=== PATIENT | female | born 1965 | race Caucasian/White ===

== ENCOUNTER 2021-07-26 11:24 | Outpatient (REF) | payer BC, SELFPAY ==
[2021-07-26 12:19] LABS: Influenza A PCR NEGATIVE (Negative); Influenza B PCR NEGATIVE (Negative); Resp Syncy Virus RNA Qual PCR NEGATIVE (Negative); SARS COV2 PCR INHOUSE NEGATIVE (Negative)
== END 2021-07-26 11:25 | disposition home or self-care (01) ==
LOC: HO.LNP 11:24
PROVIDERS: Visit Provider Physician Assistant
DX: R09.81 Nasal congestion (principal)
CPT/HCPCS: 0241U

== ENCOUNTER 2023-11-24 15:10 | Outpatient (AMB) | payer BC, SELFPAY ==
--- NOTE | 2023-11-24 15:19 | MHC.PC.OV ---
Intake Visit Reasons: check up Allergies No Known Allergies Allergy (Verified 07/26/21 08:28) PFSH Social History Patient Tobacco Use Status: Never used Tobacco Physical exam (Primary Care) Tobacco/Smoking Status: Tobacco use Status Patient Tobacco Use Status Never used Tobacco 07/26/21 08:33 Coding
--- NOTE | 2023-11-24 15:21 | MHC.PC.OV ---
Vital Signs 11/24/23 15:34 Height 5 ft 4 in Weight 160 lb BMI 27.5 BP 126/74 Blood Pressure Location Lt brachial Position Sitting Respiration 14 Pulse 92 Pulse Source Pulse Oximeter Temp 98.9 F Temp Source Oral Pulse Oximetry (%) 98 Oxygen Delivery Method Room Air Intake Visit Reasons: check up Intake Note: New patient visit. Left ear pain. Went to urgent care two weeks ago and then again a week ago with no relief. Dye Colorist Formulator Required: No Allergies No Known Allergies Allergy (Verified 11/24/23 15:26) Medication List - Last Reconciled 11/24/23 by Katharina Kendrick PA-C amlodipine 2.5 mg PO DAILY carvedilol 25 mg PO BID cyanocobalamin (vitamin B-12) mcg IM hydrochlorothiazide 12.5 mg PO QAM losartan 100 mg PO DAILY simvastatin 20 mg PO BEDTIME Tobacco use date assessed: 11/24/23 Dental Screening Dental Screen Date: 11/24/23 Did you have a dental visit in the last 12 months?: No Did you have a dental problem in the last 6 months where you did not have access to dental care?: No Was dental information given to patient?: Patient has dentist HPI check up HPI Details Patient is a 58-year-old female who presents today to [facility] and with complaints of ongoing left ear pain. She is transferring care from [facility] and was my patient there with a significant past medical history of hypertension, hyperlipidemia, Crohn's disease, B12 deficiency, chronic sinusitis. Records are not yet available. She states that her sinuses and left ear is painful x 3 weeks. She states she went to urgent care 3 x in the last 3 weeks. She states that initially she was told it was viral. She states then she was told it was an ear infection. She was given augmentin, flonase and sudafed. She states that she went back yesterday and was given cefdinir and took one dose last night. She states that her hearing on the left feels muffled. She states that she does not know why she took this medication because she is used in the past and it is ineffective. She reports intermittent fevers with this. She just does not feel like her ear is getting better. It feels like it is throbbing and very full. Sinuses are cut off tender glass. No cough or wheezing. CV: Blood pressure today in the office is 126/74. She is currently on amlodipine 2.5 mg, carvedilol 25 mg twice a day, losartan 100 mg and hctz 12.5. She is on simvastatin 20 mg. Last had her cholesterol checked. Colonoscopy: Overdue, prefers Cologuard. Has Cologuard at home and needs to still send this in. Mammogram: Overdue, 2020 was last one, she is getting it done this summer. Derm: following with [facility] for scc and bcc on chest. [facility] Medical History (Updated 11/24/23 @ 15:42 by Katharina Kendrick PA-C) Chronic sinusitis Dyslipidemia HTN (hypertension), benign Family History (Updated 11/24/23 @ 15:42 by Eulalia Livingston CMA) Father Lung cancer HTN (hypertension) Hypercholesteremia Mother HTN (hypertension) Social History (Updated 11/24/23 @ 15:34 by Eulalia Livingston CMA) Housing: House Patient Tobacco Use Status: Never used Tobacco e-Cigarette/Vaping Use: Never Used Second Hand Smoke Exposure: Yes service: No Current occupational status: employed Current occupation: [employer] Current occupational exposures/hazards: No Cognitive needs: No Hearing needs: No Vision needs: Yes Questionnaire PHQ-9 Over the last 2 weeks, how often have you been bothered by any of the following problems? 1. Little interest or pleasure in doing things: not at all 2. Feeling down, depressed, or hopeless: not at all 3. Trouble falling or staying asleep, or sleeping too much: not at all 4. Feeling tired or having little energy: not at all 5. Poor appetite or overeating: not at all 6. Feeling bad about yourself - or that you are a failure or have let yourself or your family down: not at all 7. Trouble concentrating on things, such as reading the newspaper or watching television: not at all 8. Moving or speaking so slowly that other people could have noticed. Or the opposite - being so fidgety or restless that you have been moving around a lot more than usual: not at all 9. Thoughts that you would be better off or of hurting yourself in some way: not at all Total score: 0 Depression Screening Interpretation: Negative Depression Screening Done: Yes 52652 - PHQ-9 Billing: Yes Source: Developed by Drs. Dawit Sargent, Hilary Bobo, Contreras Castillo and colleagues, with an educational elvia from [employer]. Thrive Questionnaire Date Thrive assessed: 11/24/23 I am a: Patient What is your living situation today?: I have a steady place to live Within the past 12 months, did the food you bought not last and you didn't have the money to get more?: Never true Within the past 12 months, did you worry whether your food would run out before you got money to buy more?: Never true Do you have trouble paying for medicines?: No Do you have trouble getting transportation to medical appointments?: Yes Do you have trouble paying your heating and electricity bill?: No Do you have trouble taking care of your child, family member or friend?: No Do you have trouble with day-to-day activities such as bathing, preparing meals, shopping, managing finances, etc.?: No Are you currently unemployed and looking for a job?: No Are you interested in more education?: No Please select the resources that you would like help with: Utilities Currently or been in a relationship where the following occur: no concerns reported THRIVE Score: 1 AUDIT C Alcohol Use Questionnaire (AUDIT-C) 1. How often do you have a drink containing alcohol?: Monthly or less 2. How many drinks containing alcohol do you have on a typical day when you are drinking?: 1 or 2 3. How often do you have six or more drinks on one occasion?: Never Total Score: 1 KELLIE-7 AMB Questionnaire KELLIE-7 Date KELLIE - 7 assessed: 11/24/23 Feeling nervous, anxious, or on edge: 0 = Not at all Not being able to stop or control worryin = Not at all Worrying too much about different things: 0 = Not at all Trouble relaxin = Not at all Being so restless that it is hard to sit still: 0 = Not at all Becoming easily annoyed or irritable: 0 = Not at all Feeling afraid as if something awful might happen: 0 = Not at all Total KELLIE-7 score (0-4 normal; 5-9 mild; 10-14 moderate; 15-21 severe): 0 Source: Developed by Drs. Dawit Sargent, Contreras Woodsoenke and colleagues, with an educational elvia from [employer]. KELLIE-7 Assessment Billing KELLIE-7 Assessment Tool: KELLIE-7 Assessment 65408 Physical exam (Primary Care) Vital Signs: Last Vital Signs Temp 98.9 F 11/24/23 15:34 Pulse 92 11/24/23 15:34 Resp 14 11/24/23 15:34 BP 126/74 11/24/23 15:34 Pulse Ox 98 11/24/23 15:34 Oxygen Delivery Method Room Air 11/24/23 15:34 BMI result Body Mass Index 27.5 Tobacco/Smoking Status: Tobacco use Status Tobacco use date assessed 11/24/23 11/24/23 15:40 Patient Tobacco Use Status Never used Tobacco 11/24/23 15:40 e-Cigarette/Vaping Use Never Used 11/24/23 15:40 Depression Screening Interpretation: Negative Currently or been in a relationship where the following occur: no concerns reported Const Orientation/consciousness: patient oriented x3 HENMT Other: TM on left is dome-shaped with a small air-fluid level and erythematous. Negative tug test. TM on right is noted to have a small air-fluid level. No erythema. Negative talk to us. Maxillary sinus tenderness present. Nasal mucosa is erythematous and edematous with purulent drainage noted. Ears: hearing grossly normal bilaterally Neck Thyroid: Thyroid normal Lymphatic: no lymphadenopathy noted Resp Auscultation: clear to auscultation bilaterally Cardio Rate: regular rate Rhythm: regular rhythm Heart sounds: S1 normal heart sound present and S2 normal heart sound present GI Inspection: Yes normal to inspection Palpation (GI): Soft to palpation and Other GI palpation findings present (nontender, no cva tenderness) Auscultation: normoactive bowel sounds Rectal Exam - Female: deferred Skin General skin exam: no rashes or lesions noted Neuro General: patient oriented x3, gait normal and no focal motor deficits Assessment and Plan Assessment & Plan (1) Dyslipidemia: Code(s): E78.5 - Hyperlipidemia, unspecified Plan: Has not yet had cholesterol rechecked since increasing her simvastatin last year. Lipids and LFTs ordered today. (2) HTN (hypertension), benign: Code(s): I10 - Essential (primary) hypertension Plan: WNL. Continue current regimen. Does not currently need a refill. (3) Left otitis media with effusion: Code(s): H65.92 - Unspecified nonsuppurative otitis media, left ear Plan: I will start patient on doxycycline. Risks and benefits and adverse effects such as a photosensitivity rash and GI upset was discussed. Advised to take a probiotic. We will start her on a prednisone taper. She has tolerated this in the past. Will let me know if anything worsens or changes. Plan Health maintenance reviewed. Advised patient to complete her Cologuard. I have encouraged her to complete her mammogram. I have offered to reorder this for her but she assures me that she has an appointment pending this summer with [facility] and this was ordered by her conventional machinist. She will transfer her records. Labs ordered to complete prior to her next appointment in 1 month. Orders: Orders Complete Blood Count Auto Diff Today E78.5 - Hyperlipidemia, unspecified, I10 - Essential (primary) hypertension, J32.9 - Chronic sinusitis, unspecified, Z00.00 - Encounter for general adult medical examination without abnormal findings TSH reflex Free T4 Today E78.5 - Hyperlipidemia, unspecified, I10 - Essential (primary) hypertension, J32.9 - Chronic sinusitis, unspecified Comprehensive [place]. Panel Fast Today E78.5 - Hyperlipidemia, unspecified, I10 - Essential (primary) hypertension, J32.9 - Chronic sinusitis, unspecified Lipid Panel Today E78.5 - Hyperlipidemia, unspecified, I10 - Essential (primary) hypertension, J32.9 - Chronic sinusitis, unspecified Medications: New doxycycline hyclate 100 mg PO BID 10 days 20 tabs 0RF prednisone orally daily; take 3 tab po x 3 days, 2 tab po x 3 days, then 1 tab po x 3 days 9 days 18 tabs 0RF Coding Level of Care Code Est Pt Level 4 (25080) Diagnoses Dyslipidemia E78.5 HTN (hypertension), benign I10 Left otitis media with effusion H65.92 Additional Codes KELLIE-7 Assessment Billing - KELLIE-7 Assessment Tool: KELLIE-7 Assessment 06388 ([id number])
[2023-11-24 15:34] VITALS: BP 126/74; PULSE 92; RESP 14; TEMP 37.2; O2SAT 98; BMI 27.5
== END 2023-11-24 16:33 | disposition home or self-care (01) ==
PROVIDERS: Visit Provider Physician Assistant
DX: E78.5 Hyperlipidemia, unspecified (principal); I10 Essential (primary) hypertension; H65.92 Unspecified nonsuppurative otitis media, left ear
CPT/HCPCS: 99214

== ENCOUNTER 2024-03-31 13:07 | Outpatient (AMB) | payer BC, SELFPAY ==
--- NOTE | 2024-03-31 13:15 | A.OFFPC_ITS ---
Vital Signs 03/31/24 13:17 Height 5 ft 4 in Weight 166 lb 4 oz BMI 28.5 BP 126/84 Blood Pressure Location Lt brachial Position Sitting Respiration 16 Pulse 93 Pulse Source Pulse Oximeter Pulse Oximetry (%) 95 Oxygen Delivery Method Room Air Intake Visit Reasons: 4 month follow up Intake Note: Four month follow up. Post menopausal: Yes Allergies No Known Allergies Allergy (Verified 03/31/24 13:16) Medication List - Last Reconciled 03/31/24 by Katharina Kendrick PA-C amlodipine 2.5 mg PO DAILY carvedilol 25 mg PO BID cyanocobalamin (vitamin B-12) mcg IM hydrochlorothiazide 12.5 mg PO QAM losartan 100 mg PO DAILY simvastatin 20 mg PO BEDTIME Tobacco use date assessed: 11/24/23 Dental Screening Dental Screen Date: 11/24/23 HPI 4 month follow up HPI Details Patient is a 59-year-old female who presents today for a follow up. Forgot to do labs. She has a significant past medical history of hypertension, hyperlipidemia, Crohn's disease, B12 deficiency, chronic sinusitis. CV: Blood pressure today in the office is 126/84. She is currently on amlodipine 2.5 mg, carvedilol 25 mg twice a day, losartan 100 mg and hctz 12.5. She is on simvastatin 20 mg. Last had her cholesterol checked. Psych: Mother in January. They are dealing with a lot of legal issues as brother is executor of will. Daughter had a baby in December. Colonoscopy: Saw Dr. Castellano yesterday. Brittney, prefers Cologuard. He was supposed to order this for her but didn't. She states the ACADEMIC ADVISOR she saw also asked that her pcp order the crp. Crohn's is diet controlled. Mammogram: Overdue2019 was last one, she is getting it done this Friday. Derm: following with [facility] for scc and bcc on chest. [facility] Medical History (Updated 03/31/24 @ 13:54 by Katharina Kendrick PA-C) Chronic sinusitis Dyslipidemia HTN (hypertension), benign Family History (Updated 11/24/23 @ 15:42 by Eulalia Livingston CMA) Father Lung cancer HTN (hypertension) Hypercholesteremia Mother HTN (hypertension) Social History (Updated 11/24/23 @ 15:34 by JAG Watters Housing: House Patient Tobacco Use Status: Never used Tobacco e-Cigarette/Vaping Use: Never Used Second Hand Smoke Exposure: Yes service: No Current occupational status: employed Current occupation: [employer] Current occupational exposures/hazards: No Cognitive needs: No Hearing needs: No Vision needs: Yes Questionnaire Thrive Questionnaire Date Thrive assessed: 11/24/23 KELLIE-7 AMB Questionnaire KELLIE-7 Date KELLIE - 7 assessed: 11/24/23 Source: Developed by Drs. Dawit Sargent, Hilary Bobo, Contreras Castillo and colleagues, with an educational elvia from [employer]. Physical exam (Primary Care) Tobacco/Smoking Status: Tobacco use Status Tobacco use date assessed 11/24/23 11/24/23 15:40 Patient Tobacco Use Status Never used Tobacco 11/24/23 15:40 e-Cigarette/Vaping Use Never Used 11/24/23 15:40 Thrive Assessment: Date of Thrive Assessment Date Thrive assessed 11/24/23 11/24/23 15:46 Const Orientation/consciousness: patient oriented x3 HENMT Ears: hearing grossly normal bilaterally Neck Thyroid: Thyroid normal Lymphatic: no lymphadenopathy noted Resp Auscultation: clear to auscultation bilaterally Cardio Rate: regular rate Rhythm: regular rhythm Heart sounds: S1 normal heart sound present and S2 normal heart sound present GI Inspection: Yes normal to inspection Palpation (GI): Soft to palpation and Other GI palpation findings present (nontender, no cva tenderness) Auscultation: normoactive bowel sounds Rectal Exam - Female: deferred Skin General skin exam: no rashes or lesions noted Neuro General: patient oriented x3, gait normal and no focal motor deficits Assessment and Plan Assessment & Plan (1) HTN (hypertension), benign: Code(s): I10 - Essential (primary) hypertension Plan: Continue current regimen (2) Dyslipidemia: Code(s): E78.5 - Hyperlipidemia, unspecified Plan: Labs ordered. Advised her to get this done. (3) Crohn disease: Code(s): K50.90 - Crohn's disease, unspecified, without complications Qualifiers: Gastrointestinal tract location: unspecified location Digestive disease complication type: without complication Qualified Code(s): K50.90 - Crohn's disease, unspecified, without complications Plan: Stable and controlled. (4) Chronic sinusitis: Code(s): J32.9 - Chronic sinusitis, unspecified Plan: Referral to Allergy and immunology. Gets frequent infections. Advised to try an antihistamine but discontinued this a couple of weeks prior to seeing Allergy and immunology. Plan Bone density ordered. Cologuard ordered. Labs as requested by GI ordered. Advised six-month follow up or sooner if needed. Patient understands and agrees with the plan. Orders: Orders XR DEXA axial skeleton Today Z78.0 - Asymptomatic menopausal state Vitamin D 1,25 dihydroxy Today E78.5 - Hyperlipidemia, unspecified, I10 - Essential (primary) hypertension, K50.90 - Crohn's disease, unspecified, without complications CRP High Sensitivity Today E78.5 - Hyperlipidemia, unspecified, I10 - Essential (primary) hypertension, K50.90 - Crohn's disease, unspecified, without complications Referrals Cologuard Test Z12.11 - Encounter for screening for malignant neoplasm of colon, Z12.12 - Encounter for screening for malignant neoplasm of rectum Allergy & Immunology Referral J32.9 - Chronic sinusitis, unspecified Coding Level of Care Code Est Pt Level 4 (98857) Complex EM visit Add On G2211 Diagnoses HTN (hypertension), benign I10 Dyslipidemia E78.5 Crohn's disease without complication, unspecified gastrointestinal tract location K50.90 Gastrointestinal tract location: unspecified location Digestive disease complication type: without complication Chronic sinusitis J32.9
[2024-03-31 13:17] VITALS: BP 126/84; PULSE 93; RESP 16; O2SAT 95; BMI 28.5
== END 2024-03-31 13:49 | disposition home or self-care (01) ==
PROVIDERS: PCP Physician Assistant; Visit Provider Physician Assistant
DX: I10 Essential (primary) hypertension (principal); E78.5 Hyperlipidemia, unspecified; K50.90 Crohn's disease, unspecified, without complications; J32.9 Chronic sinusitis, unspecified
CPT/HCPCS: 99214

== ENCOUNTER 2024-04-02 08:53 | Outpatient (REF) | payer BC, SELFPAY ==
[2024-04-02 10:05] LABS: MANUAL DIFF FLAG NO
[2024-04-02 10:20] LABS: Basophils Absolute Auto 0.1 X10*3/uL (0.0-0.2); Basophils Percent Auto 0.9 % (0-2); Eosinophils Absolute Auto 0.2 X10*3/uL (0.0-0.4); Eosinophils Percent Auto 3.5 % (0-4); Hematocrit 40.4 % (37.0-47.0); Hemoglobin 13.1 g/dl (12.0-16.0); Imm Gran Abs Auto 0.03 X10*3/uL (0.00-0.03); Imm Gran Pct Auto 0.4 % (0.0-0.4); Lymphocytes Absolute Auto 0.8 X10*3/uL (1.2-4.9); Lymphocytes Percent Auto 11.5 % (20-40); Mean Corpuscular HGB Conc 32.4 g/dl (31.0-35.0); Mean Corpuscular Volume 95.5 fL (80.0-98.0); Mean Platelet Volume 9.2 fL (9.4-12.3); Monocytes Absolute Auto 0.4 X10*3/uL (0.1-1.2); Neutrophils Absolute Auto 5.3 x10*3/uL (2.0-8.3); Neutrophils Percent Auto 77.7 % (45-73); Platelet Count 303 X10*3/uL (160-400); Red Blood Count 4.23 X10*6/uL (4.20-5.50); Red Cell Distribution Width 12.3 % (11.0-16.0); White Blood Count 6.9 X10*3/uL (4.8-10.8)
[2024-04-02 10:48] LABS: Alanine Aminotransferase 18 U/L (0-31); Albumin Level 4.2 g/dL (3.5-5.0); Alkaline Phosphatase 56 U/L (39-117); Anion Gap 11 (12-20); Aspartate Amino Transferase 21 U/L (5-31); Bilirubin Total 0.5 mg/dL (0.0-1.0); Blood Urea Nitrogen 13 mg/dL (9-16); Calcium 10.1 mg/dL (8.4-10.2); Carbon Dioxide 28 mmol/L (22-29); Chloride 108 mmol/L (96-108); Cholesterol 152 mg/dL (<200); Estimated Glomerular Filt Rate 59; Glucose Fasting 94 mg/dL (60-99); HDL Cholesterol 43 mg/dL (>40); LDL Cholesterol Calculated 86 mg/dL (<100); Potassium 3.5 mmol/L (3.3-5.1); Sodium 143 mmol/L (135-145); Total Protein 7.1 g/dL (6.5-8.0); Triglycerides 119 mg/dL (<150)
[2024-04-02 11:06] LABS: TSH reflex Free T4 1.51 uIU/mL (0.32-4.0)
[2024-04-05 08:43] LABS: CRP High Sensitivity 0.7 mg/L
[2024-04-08 02:44] LABS: VITAMIN D (1,25 OH) D3 32 pg/mL; Vit D (1,25-Dihydroxy) Total 32 pg/mL (18-72); Vitamin D (1,25 OH) D2 <8 pg/mL
== END 2024-04-02 08:54 | disposition home or self-care (01) ==
LOC: HO.HMGCLDS 08:53
PROVIDERS: PCP Physician Assistant; Visit Provider Physician Assistant
DX: Z00.00 Encounter for general adult medical examination without abnormal findings (principal); I10 Essential (primary) hypertension; J32.9 Chronic sinusitis, unspecified; E78.5 Hyperlipidemia, unspecified; K50.90 Crohn's disease, unspecified, without complications
CPT/HCPCS: 36415; 80053; 80061; 82652; 84443; 85025; 86141

== ENCOUNTER 2024-10-06 13:48 | Outpatient (AMB) | payer BC, SELFPAY ==
--- NOTE | 2024-10-06 15:43 | MHC.PC.OV ---
Intake Visit Reasons: renewal bp medication Allergies No Known Allergies Allergy (Verified 03/31/24 13:16) Medication List - Last Reconciled 10/06/24 by Katharina Kendrick PA-C amlodipine 2.5 mg PO DAILY carvedilol 25 mg PO BID cyanocobalamin (vitamin B-12) mcg IM hydrochlorothiazide 12.5 mg PO DAILY losartan 100 mg PO DAILY simvastatin 20 mg PO BEDTIME Tobacco use date assessed: 11/24/23 Dental Screening Dental Screen Date: 11/24/23 HPI renewal bp medication HPI Details Patient is a 59-year-old female who presents today for a follow up. Forgot to do labs. She has a significant past medical history of hypertension, hyperlipidemia, Crohn's disease, B12 deficiency, chronic sinusitis. CV: Blood pressure today in the office is 126/84. She is currently on amlodipine 2.5 mg, carvedilol 25 mg twice a day, losartan 100 mg and hctz 12.5. She is on simvastatin 20 mg. Last had her cholesterol checked. Psych: Mother in January. They are dealing with a lot of legal issues as brother is executor of will. Daughter had a baby in December. Colonoscopy: Saw Dr. Castellano yesterday. Brittney, prefers Cologuard. He was supposed to order this for her but didn't. She states the RETAIL CUSTOMER SERVICE REPRESENTATIVE she saw also asked that her pcp order the crp. Crohn's is diet controlled. Mammogram: Brittney2019 was last one, she is getting it done this Friday. Derm: following with [facility] for scc and bcc on chest. [facility] Medical History (Updated 10/06/24 @ 16:11 by Katharina Kendrick PA-C) Chronic sinusitis Dyslipidemia HTN (hypertension), benign Family History (Updated 11/24/23 @ 15:42 by Eulalia Livingston CMA) Father Lung cancer HTN (hypertension) Hypercholesteremia Mother HTN (hypertension) Social History (Updated 11/24/23 @ 15:34 by Eulalia Livingston CMA) Housing: House Patient Tobacco Use Status: Never used Tobacco e-Cigarette/Vaping Use: Never Used Second Hand Smoke Exposure: Yes service: No Current occupational status: employed Current occupation: [employer] Current occupational exposures/hazards: No Cognitive needs: No Hearing needs: No Vision needs: Yes Questionnaire Thrive Questionnaire Date Thrive assessed: 11/24/23 AUDIT C Alcohol Use Questionnaire (AUDIT-C) 3. How often do you have six or more drinks on one occasion?: Less than monthly Total Score: 1 KELLIE-7 AMB Questionnaire KELLIE-7 Date KELLIE - 7 assessed: 11/24/23 Source: Developed by Drs. Dawit Sargent, Hilary Bobo, Contreras Castillo and colleagues, with an educational elvia from [employer]. Physical exam (Primary Care) Tobacco/Smoking Status: Tobacco use Status Tobacco use date assessed 11/24/23 03/31/24 13:18 Patient Tobacco Use Status Never used Tobacco 03/31/24 13:18 e-Cigarette/Vaping Use Never Used 03/31/24 13:18 Thrive Assessment: Date of Thrive Assessment Date Thrive assessed 11/24/23 03/31/24 13:18 Telehealth Telehealth Telehealth Platform: Telephone Location of provider rendering services: practice address Location of patient: address on file Patient Identification confirmed using: Name, : Yes Telehealth method: voice only Patient verbally consented to treatment: Yes Patient verbally consented to billing insurance company: Yes Patient informed of any privacy concerns related to visit: Yes Minutes spent on Phone/Video with Pt.: 12 Results Reviewed Results Reviewed: Laboratory Tests 04/02/24 08:59 WBC 6.9 RBC 4.23 Hgb 13.1 Hct 40.4 Plt Count 303 Sodium 143 Potassium 3.5 Chloride 108 Carbon Dioxide 28 Anion Gap 11 L BUN 13 Creatinine 0.97 Estimated GFR 59 Fasting Glucose 94 Calcium 10.1 AST 21 ALT 18 Alkaline Phosphatase 56 C-React Prot High Sens 0.7 Total Protein 7.1 Albumin 4.2 Triglycerides 119 Cholesterol 152 LDL Cholesterol, Calc 86 HDL Cholesterol 43 1,25 Dihydroxy Vit D 32 TSH 1.51 Coding Level of Care Code Tele Est Pt Level 2 (99872) Diagnoses HTN (hypertension), benign I10 Basal cell carcinoma (BCC) C44.91 SCC (squamous cell carcinoma) C44.92 Decreased GFR R94.4 Dyslipidemia E78.5 Assessment & Plan Assessment & Plan (1) HTN (hypertension), benign: Code(s): I10 - Essential (primary) hypertension Category: Medical Plan: wnl continue current plan (2) Basal cell carcinoma (BCC): Code(s): C44.91 - Basal cell carcinoma of skin, unspecified Category: Medical Plan: following with [facility], getting it removed next month (3) SCC (squamous cell carcinoma): Code(s): C44.92 - Squamous cell carcinoma of skin, unspecified Category: Medical Plan: as above (4) Decreased GFR: Code(s): R94.4 - Abnormal results of kidney function studies Category: Medical Plan: will recheck if still off, will refer to nephro (5) Dyslipidemia: Code(s): E78.5 - Hyperlipidemia, unspecified Category: Medical Plan: continue simvastatin Medications: Refilled hydrochlorothiazide 12.5 mg PO DAILY 90 caps 3RF losartan 100 mg PO DAILY 90 tabs 1RF amlodipine 2.5 mg PO DAILY 90 tabs 3RF simvastatin 20 mg PO BEDTIME 90 tabs 3RF carvedilol 25 mg PO BID 180 tabs 1RF
== END 2024-10-06 17:05 | disposition home or self-care (01) ==
LOC: HO.HMCFM 13:48
PROVIDERS: PCP Physician Assistant; Visit Provider Physician Assistant
DX: I10 Essential (primary) hypertension (principal); C44.91 Basal cell carcinoma of skin, unspecified; C44.92 Squamous cell carcinoma of skin, unspecified; R94.4 Abnormal results of kidney function studies; E78.5 Hyperlipidemia, unspecified